=== PATIENT | female | born 1965 | race Caucasian/White ===

== ENCOUNTER 2017-05-30 10:41 | Outpatient (CLI) | payer OTHER, BC ==
[2017-05-30 10:58] LABS: BASOPHILS # (AUTO) 0.1 10^3/uL (0.0-0.1); BASOPHILS % (AUTO) 0.7 %; EOSINOPHILS # (AUTO) 0.1 10^3/uL (0.0-0.7); EOSINOPHILS % (AUTO) 0.8 %; HCT - HEMATOCRIT 40.1 % (37.0-47.0); HGB - HEMOGLOBIN 13.4 g/dL (12.0-16.0); LYMPHOCYTES # (AUTO) 2.2 10^3/uL (1.5-3.5); LYMPHOCYTES % (AUTO) 24.8 %; MEAN CORPUSCULAR HEMOGLOBIN 32.2 pg (27.0-31.0); MEAN CORPUSCULAR HGB CONC 33.5 g/dL (32.0-36.0); MEAN CORPUSCULAR VOLUME 96.2 fL (81.0-99.0); MEAN PLATELET VOLUME 10.2 fL (7.9-10.8); MONOCYTES # (AUTO) 0.7 10^3/uL (0.0-1.0); MONOCYTES % (AUTO) 7.5 %; NEUTROPHILS % (AUTO) 66.2 %; NUCLEATED RED BLOOD CELLS AUTO 0.1 /100WBC; RED BLOOD COUNT 4.17 10^6/uL (4.20-5.40); RED CELL DISTRIBUTION WIDTH 13.3 % (12.0-15.0)
[2017-05-30 11:18] LABS: ALBUMIN/GLOBULIN RATIO 1.5 (1.0-2.2); BILIRUBIN,TOTAL 0.7 mg/dL (0.2-1.0); BUN - BLOOD UREA NITROGEN 12 mg/dL (6-20); CALCIUM 9.7 mg/dL (8.5-10.3); CARBON DIOXIDE - CO2 28 mmol/L (21-32); CHLORIDE 100 mmol/L (101-111); CHOL/HDL RATIO 3.1 (<4.4); CHOLESTEROL 221 mg/dL; CREATININE 0.6 mg/dL (0.4-1.0); GFR - MDRD 106 (>89); GLUCOSE 112 mg/dL (70-100); HDL CHOLESTEROL 72 mg/dL; LDL/HDL RATIO 1.8 (<4.4); POTASSIUM 3.8 mmol/L (3.5-5.0); SODIUM 138 mmol/L (135-145); TOTAL PROTEIN 7.9 g/dL (6.7-8.2); TRIGLYCERIDES 81 mg/dL; VLDL CHOLESTEROL 16 mg/dL
[2017-05-30 11:57] LABS: THYROID STIMULATING HORMONE 22.55 uIU/mL (0.34-5.60)
== END 2017-05-30 10:42 | disposition home or self-care (01) ==
LOC: LAB 10:41
PROVIDERS: ATTEND Nurse Practitioner Family
DX: E88.81 Metabolic syndrome and other insulin resistance (principal); E03.9 Hypothyroidism, unspecified
CPT/HCPCS: 36415; 80053; 80061; 84439; 84443; 85025

== ENCOUNTER 2017-08-01 09:11 | Outpatient (CLI) | payer OTHER, BC ==
[2017-08-01 09:54] LABS: BASOPHILS % (AUTO) 0.3 %; EOSINOPHILS # (AUTO) 0.1 10^3/uL (0.0-0.7); EOSINOPHILS % (AUTO) 0.8 %; HGB - HEMOGLOBIN 13.4 g/dL (12.0-16.0); LYMPHOCYTES # (AUTO) 1.4 10^3/uL (1.5-3.5); LYMPHOCYTES % (AUTO) 15.5 %; MEAN CORPUSCULAR HEMOGLOBIN 32.7 pg (27.0-31.0); MEAN CORPUSCULAR HGB CONC 34.1 g/dL (32.0-36.0); MEAN CORPUSCULAR VOLUME 95.9 fL (81.0-99.0); MEAN PLATELET VOLUME 10.1 fL (7.9-10.8); MONOCYTES # (AUTO) 0.6 10^3/uL (0.0-1.0); MONOCYTES % (AUTO) 6.7 %; NEUTROPHILS % (AUTO) 76.7 %; PLT - PLATELET COUNT 143 10^3/uL (130-450); RED BLOOD COUNT 4.09 10^6/uL (4.20-5.40); RED CELL DISTRIBUTION WIDTH 13.1 % (12.0-15.0); WHITE BLOOD COUNT 9.1 x10^3/uL (4.8-10.8)
[2017-08-01 09:55] LABS: CHOL/HDL RATIO 2.7 (<4.4); CHOLESTEROL 199 mg/dL; HDL CHOLESTEROL 73 mg/dL; LDL CHOLESTEROL,CALCULATED 114 mg/dL; LDL/HDL RATIO 1.6 (<4.4); VLDL CHOLESTEROL 12 mg/dL
[2017-08-01 10:16] LABS: % IRON SATURATION 39 % (20-50); IRON 105 ug/dL (28-170); TOTAL IRON BINDING CAPACITY 270 ug/dL (250-450); TRANSFERRIN 193 mg/dL (192-382)
[2017-08-01 10:44] LABS: THYROID STIMULATING HORMONE 3.23 uIU/mL (0.34-5.60)
[2017-08-01 10:45] LABS: FREE T4 (FREE THYROXINE) 0.54 ng/dL (0.58-1.64)
== END 2017-08-01 09:12 | disposition home or self-care (01) ==
LOC: LAB 09:11
PROVIDERS: ATTEND Nurse Practitioner Family
DX: E78.5 Hyperlipidemia, unspecified (principal); E03.9 Hypothyroidism, unspecified; F41.8 Other specified anxiety disorders
CPT/HCPCS: 36415; 80061; 83540; 84439; 84443; 84466; 85025

== ENCOUNTER 2018-03-11 14:40 | Outpatient (CLI) | payer OTHER, BC ==
[2018-03-11 16:06] LABS: THYROID STIMULATING HORMONE 6.13 uIU/mL (0.34-5.60)
[2018-03-11 16:08] LABS: FREE T4 (FREE THYROXINE) 0.54 ng/dL (0.58-1.64)
== END 2018-03-11 14:41 | disposition home or self-care (01) ==
LOC: LAB 14:40
PROVIDERS: ATTEND Nurse Practitioner Family
DX: E03.9 Hypothyroidism, unspecified (principal)
CPT/HCPCS: 36415; 84439; 84443

== ENCOUNTER 2018-05-06 11:18 | Outpatient (CLI) | payer OTHER, BC ==
[2018-05-06 12:46] LABS: THYROID STIMULATING HORMONE < 0.08 uIU/mL (0.34-5.60)
[2018-05-06 12:50] LABS: FREE T4 (FREE THYROXINE) 1.02 ng/dL (0.58-1.64)
== END 2018-05-06 11:19 | disposition home or self-care (01) ==
LOC: LAB 11:18
PROVIDERS: ATTEND Nurse Practitioner Family
DX: E03.9 Hypothyroidism, unspecified (principal)
CPT/HCPCS: 36415; 84439; 84443

== ENCOUNTER 2019-03-23 10:29 | Outpatient (CLI) | payer BC | END 2019-03-23 10:30 | disposition home or self-care (01) | LOC: LAB 10:29 → RT 10:30 | PROVIDERS: ATTEND Registered Nurse | DX: I95.89 Other hypotension (principal) | CPT/HCPCS: 93005 ==

== ENCOUNTER 2019-03-24 09:03 | Outpatient (CLI) | payer BC ==
[2019-03-24 09:16] LABS: BASOPHILS % (AUTO) 0.5 %; EOSINOPHILS # (AUTO) 0.1 10^3/uL (0.0-0.7); EOSINOPHILS % (AUTO) 1.4 %; HGB - HEMOGLOBIN 13.9 g/dL (12.0-16.0); LYMPHOCYTES # (AUTO) 1.6 10^3/uL (1.5-3.5); LYMPHOCYTES % (AUTO) 25.4 %; MEAN CORPUSCULAR HEMOGLOBIN 32.3 pg (27.0-31.0); MEAN CORPUSCULAR HGB CONC 32.9 g/dL (32.0-36.0); MEAN CORPUSCULAR VOLUME 98.1 fL (81.0-99.0); MEAN PLATELET VOLUME 11.5 fL (7.9-10.8); MONOCYTES # (AUTO) 0.6 10^3/uL (0.0-1.0); MONOCYTES % (AUTO) 9.3 %; NEUTROPHILS # (AUTO) 3.9 10^3/uL (1.5-6.6); NEUTROPHILS % (AUTO) 63.2 %; PLT - PLATELET COUNT 157 10^3/uL (130-450); RED BLOOD COUNT 4.31 10^6/uL (4.20-5.40); RED CELL DISTRIBUTION WIDTH 13.6 % (12.0-15.0); WHITE BLOOD COUNT 6.2 x10^3/uL (4.8-10.8)
[2019-03-24 09:35] LABS: HB2 TOTAL 14.2 g/dL; HEMOGLOBIN A1C 0.5 g/dL; HEMOGLOBIN A1C % 5.4 % (4.6-6.2)
[2019-03-24 09:42] LABS: ALBUMIN 4.7 g/dL (3.2-5.5); ALBUMIN/GLOBULIN RATIO 1.5 (1.0-2.2); ALKALINE PHOSPHATASE 73 IU/L (42-121); ALT ALANINE AMINOTRANSFERASE 12 IU/L (10-60); AST ASPARTATE AMINOTRANSFERASE 16 IU/L (10-42); BILIRUBIN,TOTAL 1.1 mg/dL (0.2-1.0); BUN - BLOOD UREA NITROGEN 14 mg/dL (6-20); CALCIUM 9.7 mg/dL (8.5-10.3); CARBON DIOXIDE - CO2 29 mmol/L (21-32); CHLORIDE 102 mmol/L (101-111); CHOL/HDL RATIO 3.1 (<4.4); CHOLESTEROL 215 mg/dL; CREATININE 0.6 mg/dL (0.4-1.0); GFR - MDRD 105 (>89); GLUCOSE 98 mg/dL (70-100); HDL CHOLESTEROL 69 mg/dL; LDL CHOLESTEROL,CALCULATED 131 mg/dL; LDL/HDL RATIO 1.9 (<4.4); SODIUM 140 mmol/L (135-145); TOTAL PROTEIN 7.8 g/dL (6.7-8.2); VLDL CHOLESTEROL 15 mg/dL
== END 2019-03-24 09:04 | disposition home or self-care (01) ==
LOC: LAB 09:03
PROVIDERS: ATTEND Registered Nurse
DX: E03.9 Hypothyroidism, unspecified (principal)
CPT/HCPCS: 36415; 80053; 80061; 83036; 83721; 84443; 85025

== ENCOUNTER 2020-09-05 07:39 | Outpatient (CLI) | payer BC ==
[2020-09-05 08:10] LABS: BASOPHILS % (AUTO) 0.7 %; EOSINOPHILS # (AUTO) 0.1 10^3/uL (0.0-0.7); EOSINOPHILS % (AUTO) 1.9 %; HGB - HEMOGLOBIN 13.8 g/dL (12.0-16.0); LYMPHOCYTES # (AUTO) 1.4 10^3/uL (1.5-3.5); LYMPHOCYTES % (AUTO) 23.7 %; MEAN CORPUSCULAR HEMOGLOBIN 31.2 pg (27.0-31.0); MEAN CORPUSCULAR HGB CONC 31.8 g/dL (32.0-36.0); MEAN CORPUSCULAR VOLUME 98.2 fL (81.0-99.0); MEAN PLATELET VOLUME 11.3 fL (7.9-10.8); MONOCYTES # (AUTO) 0.6 10^3/uL (0.0-1.0); MONOCYTES % (AUTO) 9.5 %; NEUTROPHILS # (AUTO) 3.7 10^3/uL (1.5-6.6); NEUTROPHILS % (AUTO) 63.7 %; PLT - PLATELET COUNT 159 10^3/uL (130-450); RED BLOOD COUNT 4.42 10^6/uL (4.20-5.40); RED CELL DISTRIBUTION WIDTH 13.2 % (12.0-15.0); WHITE BLOOD COUNT 5.8 x10^3/uL (4.8-10.8)
[2020-09-05 08:31] LABS: ALBUMIN 4.5 g/dL (3.2-5.5); ALBUMIN/GLOBULIN RATIO 1.6 (1.0-2.2); ALKALINE PHOSPHATASE 65 IU/L (42-121); ALT ALANINE AMINOTRANSFERASE 12 IU/L (10-60); AST ASPARTATE AMINOTRANSFERASE 14 IU/L (10-42); BILIRUBIN,TOTAL 0.5 mg/dL (0.2-1.0); BUN - BLOOD UREA NITROGEN 13 mg/dL (6-20); CALCIUM 9.7 mg/dL (8.5-10.3); CARBON DIOXIDE - CO2 28 mmol/L (21-32); CHLORIDE 102 mmol/L (101-111); CHOL/HDL RATIO 3.2 (<4.4); CHOLESTEROL 218 mg/dL; CREATININE 0.7 mg/dL (0.4-1.0); GLUCOSE 84 mg/dL (70-100); HDL CHOLESTEROL 68 mg/dL; LDL CHOLESTEROL,CALCULATED 129 mg/dL; LDL/HDL RATIO 1.9 (<4.4); TOTAL PROTEIN 7.4 g/dL (6.7-8.2); VLDL CHOLESTEROL 21 mg/dL
[2020-09-05 09:10] LABS: FREE T4 (FREE THYROXINE) 1.07 ng/dL (0.58-1.64)
== END 2020-09-05 07:40 | disposition home or self-care (01) ==
LOC: LAB 07:39
PROVIDERS: ATTEND Registered Nurse
DX: I95.89 Other hypotension (principal); R40.0 Somnolence; F41.9 Anxiety disorder, unspecified; F32.9 Major depressive disorder, single episode, unspecified; E78.5 Hyperlipidemia, unspecified
CPT/HCPCS: 36415; 80053; 80061; 83721; 84439; 84443; 85025

== ENCOUNTER 2021-04-19 08:00 | Outpatient (CLI) | payer BC | END 2021-04-19 23:59 | disposition home or self-care (01) | LOC: LAB.N 08:00 | PROVIDERS: ATTEND Family Medicine | DX: R31.9 Hematuria, unspecified (principal) | CPT/HCPCS: 87086; 87181 ==

== ENCOUNTER 2021-05-29 14:39 | Outpatient (CLI) | payer BC ==
[2021-05-29 15:30] VITALS: BP 114/69
--- NOTE | 2021-05-29 15:30 | SLEEP CARE CONSULTATION ---
Information from patient questionnaire entered by Giuseppe Riojas MA. I have reviewed and concur with the information entered by Giuseppe Riojas MA. This document represents the service I personally performed and the decisions made by , Alma Burger ARNP. History of Present Illness Service Date and Time: 05/29/2021 1439 Reason for Visit: New patient Chief Complaint: reports: Unrefreshed sleep, Snoring, Excessive daytime sleepiness, Fatigue Date of Onset: forever Usual bedtime: 800 pm Time it takes to fall asleep: 10 minutes Snores at night: Yes Observed to quit breathing while asleep: No Sleeps alone due to snoring: No Number of times waking at night: 1 Reasons for waking at night: reports: Snoring, Bathroom Toss, Turn, or Twitch while sleeping: No Recalls having dreams: Yes Usually gets out of bed at: 0500 0600 Feels refreshed in the morning: No Morning headache: No Sleepy or fatigued during the day: Yes Ever fallen asleep while driving: No Takes day naps: Yes (daily for 20-60 minutes) Dreams during day naps: No Prior sleep studies: No Additional HPI information: I had the pleasure of seeing SLIM WELSH today regarding the possibility of her having a sleep disorder. Her current complaints are excessive daytime sleepiness, fatigue, snoring and unrefreshed sleep. Her has told her she will snore and then gets quiet and he thinks she stops breathing. She has woke herself up snoring. Her mother had sleep apnea and did use a PAP device. She does not wake up feeling rested and gets sleepy during the day. She will take a nap for 20-60 minutes daily. - Parasomnia Symptoms Ever been unable to move upon waking from sleep: No Walks in sleep: No Talks in sleep: Yes (can carry on a conversation ) Ever acted out dreams in sleep: No Ever felt weak in the knees when startled or emotional: No Bothered by creepy, crawly, restless sensations in legs: No Problems with memory or concentration: Yes (some days) Subjective Initial [place] Sleepiness Scale score: 10 (2020) Past Medical History Past Medical History: reports: Depression, Attention deficit (not diagnosed, thinks she has this) Social History The patient's occupation is a [employer]. Patient is and lives in [place]. Have you smoked in the past 12 months: Yes Cigarettes per day (20/pack): 10 Alcohol use: No Caffeine use: Yes Caffeine amount and frequency: 4 cups x daily Family History Family history of sleep disordered breathing: Yes Family Hx Sleep Apnea: Mother: Snoring, Sleep apnea - Treated Allergies and Home Medications Drug allergies reviewed: Yes (Codiene, itching) Home medication list reviewed: Yes Allergy and home medication list: [place] Thyroid med for sleep, not sure of name Citalopram Review of Systems Gastrointestinal: denies: heartburn Neurological: denies: headaches Psychiatric: reports: depression Ear/Nose/Throat: reports: wisdom teeth removed (has two only). denies: tonsillectomy Endocrine: reports: thyroid disease Immunologic: denies: allergies to food or environment Physical Exam Vital signs obtained and entered by: Beulah CHENGMA Blood Pressure: 114/69 (left ) Cuff size: wrist Heart Rate: 68 O2 Saturation: 96 (with masks) Height: 5 ft 7 in Weight: 174 lb (with boots) Body Mass Index: 27.2 BMI Classification: Overweight Neck circumference: 13 (inches) Mouth and throat: narrow oropharynx Soft palate: long Hard palate: normal Uvula: normal Uvula visualization: 50% Mallampati Class II Tongue: normal in size Tonsils: small Neck: normal w/o lymphadenopathy or thyromegaly Heart: regular rate and rhythm Lungs: clear bilaterally Impression and Plan 1. Suspected Obstructive Sleep Apnea-Hypopnea Syndrome, as suggested by a history of loud and irregular snoring, observed cessation of breath while asleep, unrefreshed sleep, cognitive impairment, and excessive daytime sleepiness. Narrow oropharynx and obesity are common predisposing factors for obstructive sleep apnea-hypopnea syndrome. I recommend proceeding to polysomnography to confirm the diagnosis and to assess severity. If the patient has significant sleep disordered breathing, a manual CPAP titration study will also be performed to find the optimal treatment pressure. I informed the patient of what the sleep studies involve and after some discussion, obtained agreement to proceed. The pathophysiology of obstructive sleep apnea-hypopnea syndrome was discussed with the patient and health risks of cardiovascular and cerebrovascular disease if not treated. AAS brochure for obstructive sleep apnea-hypopnea syndrome given and reviewed. Risks of drowsy driving discussed in detail and patient advised to avoid long distance driving and to machine tack puller at the first sign of drowsiness. Patient agreed to plan. * Schedule polysomnography +- manual CPAP titration study and return in 1-2 weeks after the study to discuss result and initiate therapy. * Avoid long distance driving or driving when feeling sleepy. * Avoid alcohol, sedative and muscle relaxant around bedtime. * Attempt to lose weight. * Review instructions provided by trained office staff on how to prepare for the sleep study. * Return for follow-up after sleep study completed. Counseling Topics: Weight loss health impact Time Spent with Patient (minutes): 30
== END 2021-05-29 14:40 | disposition home or self-care (01) ==
LOC: SC 14:39
PROVIDERS: ATTEND Nurse Practitioner Family
DX: G47.10 Hypersomnia, unspecified (principal); R41.89 Other symptoms and signs involving cognitive functions and awareness; G47.8 Other sleep disorders; R06.81 Apnea, not elsewhere classified; R06.83 Snoring
CPT/HCPCS: 99203; 99212

== ENCOUNTER 2021-07-06 09:57 | Outpatient (CLI) | payer BC | END 2021-07-06 09:58 | disposition home or self-care (01) | LOC: SC 09:57 | PROVIDERS: ATTEND Nurse Practitioner Family | DX: G47.33 Obstructive sleep apnea (adult) (pediatric) (principal); R09.02 Hypoxemia | CPT/HCPCS: 95806 ==

== ENCOUNTER 2021-07-09 21:04 | Emergency (ER) | payer BC ==
--- NOTE | 2021-07-09 22:11 | ED Physician Documentation ---
PD HPI BACK PAIN - Stated complaint Stated Complaint: BACK PX - Chief complaint Chief Complaint: Trauma Ch/Bk - Additional information Additional information: Patient is a 56-year-old female presenting with back and left-sided hip pain. Endorses for longstanding history of chronic back pain worse x1 week. States known history of spinal stenosis. Denies any trauma to the back. Denies any fever, chills, saddle paresthesias, changes bowel bladder habit, weakness in the lower extremities. 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 - Present Medications Home Medications: Ambulatory Orders Medication Instructions Recorded Confirmed Hormone Replacement 0 mg DAILY 12/01/13 07/09/21 Thyroid [[place] Thyroid] 120 mg PO DAILY 12/01/13 07/09/21 Acetaminophen [Tylenol] 650 mg PO Q6H PRN #30 tab 07/09/21 Citalopram Hydrobromide 40 mg PO DAILY 07/09/21 07/09/21 [Citalopram HBr] Diazepam [Valium] 2 mg PO Q6HR 4 Days #12 tablet 07/09/21 Ibuprofen [Motrin] 800 mg PO Q8H PRN #30 tablet 07/09/21 - Allergies Allergies/Adverse Reactions: Allergies Allergy/AdvReac Type Severity Reaction Status Date / Time codeine Allergy Itching Verified 07/09/21 21:14 - Social History Does the pt smoke?: Yes Smoking Status: Current every day smoker Does the pt drink ETOH?: Yes Does the pt have substance abuse?: No - Immunizations Immunizations are current?: Yes - POLST Patient has POLST: No PD ED PE NORMAL - Vitals Vital signs reviewed: Yes - General General: Alert and oriented X 3 - HEENT HEENT: Atraumatic - Neck Neck: Supple, no meningeal sign - Respiratory Respiratory: No respiratory distress PD ED PE EXPANDED - Back Back: Soft tissue tenderness (Left paralumbar soft tissue tenderness to palpation). No: Vertebral tenderness, CVA TTP left Results - Vitals Vitals: Vital Signs - 24 hr 07/09/21 07/09/21 21:11 23:16 Temperature 36.3 C L 36.4 C L Heart Rate 92 85 Respiratory 18 18 Rate Blood Pressure 108/66 110/67 O2 Saturation 95 96 Oxygen O2 Source Room air PD MEDICAL DECISION MAKING - ED course ED course: Patient is 56-year-old female presenting to the emergency department with acute on chronic back pain. Afebrile, hemodynamically stable on arrival to the emergency department. No red flags for spinal cord compression noted in patient's history. She was given medications for symptomatic management and discharged on a brief course of a muscle relaxer. Encouraged careful follow-up with primary care or return to the emergency department for new or worsening symptoms. Departure - Departure Disposition: 01 Home, Self Care Clinical Impression: Back pain Condition: Fair Instructions: IBUPROFEN (Adult), ED Neck Back Pain General Prescriptions: Diazepam [Valium] 2 mg PO Q6HR 4 Days #12 tablet Ibuprofen [Motrin] 800 mg PO Q8H PRN #30 tablet PRN Reason: PAIN &/OR FEVER Acetaminophen [Tylenol] 650 mg PO Q6H PRN #30 tab PRN Reason: Pain Comments: Thank You for allowing us to care for you today at [facility]. I will be sending some prescriptions to [facility] in [place]. 1 of these, Valium, is a strong muscle relaxer and can cause sedation. Please take this medication sparingly and only as needed. Please do not use this medication if you are operating a motor vehicle, using heavy machinery or you are the sole senior bi architect of young children. Please do follow-up with your primary care doctor in order to make an appointment for medical recheck as soon as possible. If it anytime you have any new or worsening symptoms please not hesitate to return to the emergency department. Discharge Date/Time: 07/09/21 23:16
[2021-07-09] MEDS ORDERED: KETOROLAC 60 MG/2 ML VIAL IM STA (22:42)
[2021-07-09] MEDS ORDERED: DEXAMETHASONE 10 MG/ML VIAL PO STA (22:42)
[2021-07-09] MEDS ORDERED: CHERRY SYRUP 10 ML UDC PO ONE (22:42)
[2021-07-09] MEDS ORDERED: diazePAM 5 MG TABLET PO STA (22:46)
[2021-07-09 23:17] VITALS: BP 110/67
== END 2021-07-09 23:16 | disposition home or self-care (01) ==
LOC: ED 21:04
DX: M54.2 Cervicalgia (principal); G89.29 Other chronic pain; F17.200 Nicotine dependence, unspecified, uncomplicated
CPT/HCPCS: 96372; 99283; A9270

== ENCOUNTER 2021-07-24 13:37 | Outpatient (CLI) | payer BC ==
[2021-07-24 14:23] VITALS: BP 113/70
--- NOTE | 2021-07-24 14:23 | SLEEP CARE CONSULTATION ---
Information from patient questionnaire entered by Giuseppe Riojas MA. I have reviewed and concur with the information entered by Giuseppe Riojas MA. This document represents the service I personally performed and the decisions made by , Alma Burger ARNP. History of Present Illness Service Date and Time: 07/24/2021 1337 Initial [place] Sleepiness Scale score: 10 (2020) Current [place] Sleepiness Scale score: 10 (2021) Additional HPI information: SLIM WELSH returns for follow up and results of the recently performed home sleep study. I explained the pathophysiology behind obstructive sleep apnea. We then spent quite a bit of time discussing different treatment options. For mild obstructive sleep apnea, surgery and oral appliance are alternatives to nasal CPAP therapy but in moderate or severe cases, nasal CPAP is the most effective and reliable treatment. Because apnea is primarily in supine position, then positional management therapy could be effective. Methods discussed such as positioning with pillows, using a T-shirt with tennis balls in the back, and shown commercial products that have a pillow format on back to prevent supine sleep. I reviewed the impact of weight changes on sleep apnea and strongly recommended losing weight. After some discussion, the patient opted to go with the nasal CPAP therapy. Nasal autoCPAP set at 4-15 cmH20 will be ordered with rationale explained. A manual titration study will be ordered if unable to find optimal pressure with office adjustments. I explained how CPAP machine works and what to expect when using the machine. Using CPAP every night in order to get used to it was emphasized. Patient advised to put CPAP mask on before getting into bed so as not to fall asleep without CPAP. To assist acclimation to CPAP use, it could also be used for a short time during day while reading or watching TV. The patient was instructed to call the CPAP supplier to discuss any mechanical problem that may occur. If the mask given is uncomfortable or is difficult to keep on through the night even with adjustment, contact the CPAP supplier as many will replace with another mask style if notified before 30 days. If snoring or perceives is not getting enough air or too much air from the machine, notify this office. AAS patient education PAP tips reviewed and given to patient. Patient does not drink alcohol. Patient was cautioned about risks of drowsy driving until sleepiness symptoms resolve. Sleep Study - Results Prior sleep studies: No Polysomnography/Home Sleep Study results: Physician Impression: The quality of the study is fair due to partial loss of pulse oximetry signal. The length of the study is adequate (> 240 minutes). Please also see the tabulated and graphic data. 1. Obstructive Sleep Apnea-Hypopnea (ICD-10 G47.33), moderate, with an AHI of 20.3/hr and francisco j SaO2 of 57%. During the study, the patient had 70 apneas (69 obstructive, 0 central, 1 mixed) and 7 hypopneas. The longest episode lasted 127.0 seconds. The respiratory events occurred more frequently during supine sleep (supine AHI was 35.5 and non-supine, 10.43). 2. Hypoxemia (ICD-10 R09.02), severe, with the lowest oxygen saturation of 57 % and 24.2 minutes with SaO2 under 90%. Baseline oxygen saturation was normal (Average oxygen saturation was 91%). However, the pulse oximetry data is not reliable. Allergies and Home Medications Home medication list reviewed: Yes (no changes) Review of Systems Review of systems same as previous: Yes (no changes) Physical Exam Vital signs obtained and entered by: FILIPE RAMIREZ Blood Pressure: 113/70 (LEFT) Cuff size: wrist Heart Rate: 62 O2 Saturation: 97 (WITH PAPER MASK) Height: 5 ft 8.5 in Weight: 175 lb Body Mass Index: 26.2 BMI Classification: Overweight Impression and Plan 1. Obstructive Sleep Apnea-Hypopnea Syndrome, moderate, with lowest oxygen saturation of 57% (loss of pulse oximetry signal during study). Obviously this is the cause of the patients symptoms of unrefreshed sleep, and excessive daytime sleepiness. Positive pressure therapy could benefit depression and attention deficit. As mentioned above, the patient will be started on nasal autoCPAP therapy with pressure set at 4-15 cmH2O. A manual titration study will be completed if unable to find optimal treatment pressure with office adjustmen ts. Compliance guidelines also reviewed. A copy of compliance guidelines will be given for reference at check out. Because the apnea is more severe supine, I instructed to avoid sleeping supine using pillow positioning until able to start CPAP use. * Nasal auto CPAP therapy, pressure at 4-15 cm H2O. * Attempt to lose weight. * Avoid alcohol consumption near bedtime. * Avoid supine sleep until using CPAP. * The patient is again cautioned about driving until sleepiness completely resolves. * Return one month after CPAP obtained. I will assess response to therapy and compliance at that time. Counseling Topics: Sleeping position, Weight loss health impact Visit Type: In Office Time Spent with Patient (minutes): 22 Provider Statement: I spent 100% of the Face to Face Visit with the patient with greater than 50% spent counseling the patient and coordination of care.
== END 2021-07-24 13:38 | disposition home or self-care (01) ==
LOC: SC 13:37
PROVIDERS: ATTEND Nurse Practitioner Family
DX: G47.33 Obstructive sleep apnea (adult) (pediatric) (principal)
CPT/HCPCS: 99212; 99213

== ENCOUNTER 2021-11-27 13:10 | Outpatient (CLI) | payer BC ==
[2021-11-27 14:03] VITALS: BP 126/71
--- NOTE | 2021-11-27 14:03 | SLEEP CARE CONSULTATION ---
Information from patient questionnaire entered by Giuseppe Riojas MA. I have reviewed and concur with the information entered by Giuseppe Riojas MA. This document represents the service I personally performed and the decisions made by , Alma Burger ARNP. History of Present Illness Service Date and Time: 11/27/2021 1310 Previous diagnosis: Mild, Obstructive Sleep Apnea-Hypopnea Syndrome AHI: 20.3 (in 2020) Reason for follow up: first compliance (set up 08/30/2021, resmed, ) Equipment type: CPAP Equipment obtained from: Other ([facility]; got inital supplies) Mask style: Nasal Backup mask available: Yes (old mask) Last cushion change: 3 weeks Prior sleep studies: No HPI additional information: SLIM WELSH was diagnosed to have mild, AHI 20.3, obstructive sleep apnea-hypopnea syndrome and returned today for CPAP therapy first compliance (with [facility]) follow-up. Sleep Study - Results Prior sleep studies: No CPAP Compliance Data - Data Reviewed with Patient Average duration of nightly device use: 5 hours 54 minutes Compliance rate %: 40 (30 days; 15/30 days used) Current pressure setting (cmH2O): 4-15 (median 8.7, avg 12.6, max 14.0) Average residual AHI: 9.7 Central apnea: 2.7 Obstructive apnea: 5.5 Average large leak: 25.2 Subjective Missed days of use due to: reports: illness (covid), travel (to [place] for week to 10 days) Patient concerns: reports: dry mouth, nose, throat (occasional dry mouth), other (snores still; mask falls off or removes while sleeping). denies: aerophagia, mask discomfort, air blowing in eyes, mask leak noise, condensation in mask/hose, nasal congestion, epistaxis Observed to snore while using device: No Current pressure setting perceived as: too low On therapy, patient: reports: other (waking). denies: drowsiness while driving Initial [place] Sleepiness Scale score: 10 (2020) Current [place] Sleepiness Scale score: 15 (11/2021) Allergies and Home Medications Known drug allergies: No Drug allergies reviewed: Yes Home medication list reviewed: Yes Allergy and home medication list: Allergies codeine Allergy (Verified 07/09/21 21:14) Itching Physical Exam Vital signs obtained and entered by: Sampson RIOJAS CMA AAYU Blood Pressure: 126/71 Heart Rate: 67 O2 Saturation: 97 (paper mask) Height: 5 ft 8.5 in Weight: 0 oz (pt refused) Body Mass Index: 0.0 BMI Classification: Underweight Impression and Plan 1. Obstructive Sleep Apnea-Hypopnea Syndrome, moderate, with poor treatment compliance and fair apnea control with mild elevation of residual AHI. Patient has not felt a lot of difference in her symptoms but she has not been getting compliant time on her device. She was sick with Covid for 2 weeks and did not use her CPAP. She has been trying to use the CPAP and has felt like the beginning pressure is too low. She continually has to move the cushion away from her nose to see if the pressure is on. She states she will wake up and find the mask on her bed, on her forehead or on the floor without any recollection of t aking it off. Her pressure setting is slightly ineffective with an elevated residual AHI. The patients pressure will be changed to autoCPAP 13-18 cmH20 for elevation of residual AHI. Patient advised to contact me if pressure change is uncomfortable so that it can be adjusted. Goals for apnea control discussed. She voiced understanding. She tells me that her DME is trying to get her to return her machine due to poor compliance. I will have her concentrate on getting her compliance up and follow up in a month to recheck this. She also been oral venting and I advised she try a chin strap. Patient's apnea severity and rationale for treatment to reduce apnea, improve sleep quality and reduce cardiovascular and cerebrovascular events was reviewed. I also reviewed the benefit of consistent device use of CPAP for depression and attention deficit. * Increase ramp starting pressure to 6 cmH2O for air hunger at beginning of night * Change auto CPAP pressure to 13-18 cmH2O * Chin strap * get enough supplies to continue using CPAP * Notify me if snoring with mask or feeling that the pressure is too much or too little * Attempt to lose weight * Call this office if any problems using CPAP * Return for follow up in 1-2 months, or sooner if concerns arise Counseling Topics: Spare mask, Weight loss health impact Visit Type: In Office Time Spent with Patient (minutes): 29 Provider Statement: I spent 100% of the Face to Face Visit with the patient with greater than 50% spent counseling the patient and coordination of care.
== END 2021-11-27 13:11 | disposition home or self-care (01) ==
LOC: SC 13:10
PROVIDERS: ATTEND Nurse Practitioner Family
DX: G47.33 Obstructive sleep apnea (adult) (pediatric) (principal)
CPT/HCPCS: 99212; 99213

== ENCOUNTER 2021-12-01 08:00 | Outpatient (CLI) | payer BC | END 2021-12-01 23:59 | disposition home or self-care (01) | LOC: LAB.S 08:00 | PROVIDERS: ATTEND Physician Assistant | DX: N39.0 Urinary tract infection, site not specified (principal) | CPT/HCPCS: 87086 ==

== ENCOUNTER 2022-05-07 16:29 | Outpatient (CLI) | payer BC ==
--- NOTE | 2022-05-07 15:58 | SLEEP CARE CONSULTATION ---
Information from patient questionnaire entered by Sindhu Lawrence. I have reviewed and concur with the information entered by Sindhu Lawrence. This document represents the service I personally performed and the decisions made by me, Alma Burger ARNP. History of Present Illness Service Date and Time: 05/07/2022 1629 Previous diagnosis: Mild, Obstructive Sleep Apnea-Hypopnea Syndrome AHI: 20.3 (in 2020) Reason for follow up: other (5 MONTH F/U RESMED MASK ISSUES) Equipment type: CPAP Equipment obtained from: Other ([facility]) Mask style: Nasal Backup mask available: No Prior sleep studies: No HPI additional information: SLIM WELSH was diagnosed to have moderate, AHI 20.3, obstructive sleep apnea-hypopnea syndrome and returns via video telehealth video today for CPAP therapy 5 month follow-up. Sleep Study - Results Prior sleep studies: No CPAP Compliance Data - Data Reviewed with Patient Average duration of nightly device use: 5 hours 57 minutes Compliance rate %: 53 (/30 days used; 04/07/2022-05/06/2022) Current pressure setting (cmH2O): 13-18 Average residual AHI: 4.6 Central apnea: 2.2 Obstructive apnea: 1.9 Average large leak: 1.4 L/min Compliance data discussion: Patient was very concerned when her DME asked her to return her CPAP due to her non-compliance. She thought she was being compliant. She was wearing her mask at least 6 hours or more at night. She discovered about month or so ago that the machine is set to turn off if you take the mask off. She would wake up to use the restroom and take the mask off and then return and put the mask on without noticing that the machine was not on. She has her machine set for Smartstop which will turn the pressure off if it does not detect someone in the mask. Subjective Missed days of use due to: reports: mask issues Patient concerns: reports: mask discomfort. denies: aerophagia, air blowing in eyes, mask leak noise, condensation in mask/hose, nasal congestion, dry mouth, nose, throat, epistaxis Observed to snore while using device: No Current pressure setting perceived as: too low On therapy, patient: reports: other (She is not feeling a difference in restfulness or sleeping better so far). denies: drowsiness while driving Initial [place] Sleepiness Scale score: 10 (2020) Current [place] Sleepiness Scale score: 7 (05/07\2020) Allergies and Home Medications Drug allergies reviewed: Yes (codeine) Home medication list reviewed: Yes (Adderral 30 mg 0530; 10 mg 0730) Review of Systems Review of systems same as previous: Yes (ADHD) Physical Exam Vital signs obtained and entered by: VIA PHONE Height: 5 ft 8.5 in Weight: 170 lb (pt verified ) Body Mass Index: 25.4 BMI Classification: Overweight Impression and Plan 1. Obstructive Sleep Apnea-Hypopnea Syndrome, moderate, with poor treatment compliance and good apnea control. Patient is trying to wear her mask and be compliant. She did not know it had an automatic cough if she took the mask off at night and has been wearing the mask without the pressure going. This also shows her to be poorly compliant because the machine is not recording her wearing the mask. Patient also notes that in February 2021 her son and she has been dealing with those emotions over the last year when she started using the CPAP. She knows this probably affected her ability to focus and noticed slight changes with her CPAP. I will have the patient bring in her CPAP and we can adjust that Smart stop for her. I also will have her follow-up to recheck her compliance in about a month. We will let her [employer] company know about these difficulties. They have been trying to get her to return her machine due to noncompliance and have charged her for supplies. She returned the supplies and is okay with supplies right now. I will have my office staff please call to try and work out some details so that she can continue to use her machine and show compliance now that we know what the problem has been. We will then follow-up with her again for her compliance. Patient's apnea severity and rationale for treatment to reduce apnea, improve sleep quality and reduce cardiovascular and cerebrovascular events was reviewed. I also reviewed the benefit of consistent device use of CPAP for depression and attention deficit. * Continue auto CPAP pressure at 13-18 cmH2O * Notify me if snoring with mask or feeling that the pressure is too much or too little * Call this office if any problems using CPAP * Return for follow up in 1-2 months, or sooner if concerns arise Counseling Topics: Spare mask, Weight loss health impact Visit Type: Telehealth Video [facility] Patient Location: sister's Location of Provider: Office Patient agrees and consents to this telehealth visit type: Yes Patient agrees to have their insurance billed: Yes Time Spent with Patient (minutes): 24 Provider Statement: I spent 100% of the Telehealth Video Call with the patient with greater than 50% spent counseling the patient and coordination of care.
== END 2022-05-07 16:30 | disposition home or self-care (01) ==
LOC: SC 16:29
PROVIDERS: ATTEND Nurse Practitioner Family
DX: G47.33 Obstructive sleep apnea (adult) (pediatric) (principal); E66.3 Overweight; Z68.25 Body mass index [BMI] 25.0-25.9, adult

== ENCOUNTER 2022-07-26 07:53 | Outpatient (CLI) | payer BC ==
[2022-07-26 08:10] LABS: BASOPHILS % (AUTO) 0.6 %; EOSINOPHILS # (AUTO) 0.1 10^3/uL (0.0-0.7); EOSINOPHILS % (AUTO) 1.4 %; HCT - HEMATOCRIT 42.8 % (37.0-47.0); LYMPHOCYTES # (AUTO) 1.7 10^3/uL (1.5-3.5); LYMPHOCYTES % (AUTO) 22.7 %; MEAN CORPUSCULAR HEMOGLOBIN 31.7 pg (27.0-31.0); MEAN CORPUSCULAR HGB CONC 32.7 g/dL (32.0-36.0); MEAN CORPUSCULAR VOLUME 97.1 fL (81.0-99.0); MEAN PLATELET VOLUME 11.2 fL (7.9-10.8); MONOCYTES # (AUTO) 0.7 10^3/uL (0.0-1.0); MONOCYTES % (AUTO) 9.2 %; NEUTROPHILS # (AUTO) 4.8 10^3/uL (1.5-6.6); NEUTROPHILS % (AUTO) 65.8 %; PLT - PLATELET COUNT 196 10^3/uL (130-450); RED BLOOD COUNT 4.41 10^6/uL (4.20-5.40); RED CELL DISTRIBUTION WIDTH 13.5 % (12.0-15.0); WHITE BLOOD COUNT 7.3 x10^3/uL (4.8-10.8)
[2022-07-26 08:27] LABS: ALBUMIN 4.4 g/dL (3.2-5.5); ALBUMIN/GLOBULIN RATIO 1.4 (1.0-2.2); ALKALINE PHOSPHATASE 60 IU/L (42-121); ALT ALANINE AMINOTRANSFERASE 13 IU/L (10-60); AST ASPARTATE AMINOTRANSFERASE 20 IU/L (10-42); BILIRUBIN,TOTAL 0.8 mg/dL (0.2-1.0); BUN - BLOOD UREA NITROGEN 13 mg/dL (6-20); CALCIUM 9.5 mg/dL (8.5-10.3); CARBON DIOXIDE - CO2 29 mmol/L (21-32); CHLORIDE 101 mmol/L (101-111); CHOLESTEROL 239 mg/dL; CREATININE 0.7 mg/dL (0.4-1.0); GFR - MDRD 87 (>89); GLUCOSE 100 mg/dL (70-100); HDL CHOLESTEROL 80 mg/dL; LDL CHOLESTEROL,CALCULATED 139 mg/dL; LDL/HDL RATIO 1.7 (<4.4); POTASSIUM 3.7 mmol/L (3.5-5.0); SODIUM 136 mmol/L (135-145); TOTAL PROTEIN 7.6 g/dL (6.7-8.2); TRIGLYCERIDES 100 mg/dL; VLDL CHOLESTEROL 20 mg/dL
[2022-07-26 08:35] LABS: THYROID STIMULATING HORMONE 1.29 uIU/mL (0.34-5.60)
[2022-07-26 08:41] LABS: FERRITIN 25.8 ng/mL (11.0-306.8)
== END 2022-07-26 07:54 | disposition home or self-care (01) ==
LOC: LAB 07:53
PROVIDERS: ATTEND Registered Nurse
DX: E78.5 Hyperlipidemia, unspecified (principal); E03.9 Hypothyroidism, unspecified; Z79.899 Other long term (current) drug therapy
CPT/HCPCS: 36415; 80053; 80061; 82728; 83721; 84443; 85025

== ENCOUNTER 2023-01-11 18:24 | Emergency (ER) | payer BC ==
[2023-01-11 18:44] LABS: BASOPHILS # (AUTO) 0.1 10^3/uL (0.0-0.1); BASOPHILS % (AUTO) 0.4 %; EOSINOPHILS % (AUTO) 0.2 %; HCT - HEMATOCRIT 39.7 % (37.0-47.0); HGB - HEMOGLOBIN 13.1 g/dL (12.0-16.0); LYMPHOCYTES # (AUTO) 1.3 10^3/uL (1.5-3.5); LYMPHOCYTES % (AUTO) 9.9 %; MEAN CORPUSCULAR HEMOGLOBIN 31.2 pg (27.0-31.0); MEAN CORPUSCULAR VOLUME 94.5 fL (81.0-99.0); MEAN PLATELET VOLUME 11.3 fL (7.9-10.8); MONOCYTES # (AUTO) 1.4 10^3/uL (0.0-1.0); MONOCYTES % (AUTO) 10.4 %; NEUTROPHILS # (AUTO) 10.7 10^3/uL (1.5-6.6); NEUTROPHILS % (AUTO) 78.7 %; PLT - PLATELET COUNT 157 10^3/uL (130-450); RED CELL DISTRIBUTION WIDTH 13.8 % (12.0-15.0); WHITE BLOOD COUNT 13.6 x10^3/uL (4.8-10.8)
--- NOTE | 2023-01-11 18:48 | ED Physician Documentation ---
PD HPI ABD PAIN - Stated complaint Stated Complaint: FEVER - Chief complaint Chief Complaint: Abd Pain - History obtained from History obtained from: Patient - Additional information Additional information: 57-year-old woman with a single episode of diverticulitis in the past. Has had total hysterectomy and gastric sleeve as well. Has had a little under week of worsening left lower quadrant pain with fevers up to 103 at home over the last day and difficulty with bowel movements. PD PAST MEDICAL HISTORY - Past Medical History Endocrine/Autoimmune: HyPOthyroidism Musculoskeletal: Chronic back pain - Past Surgical History Past Surgical History: Yes General: Gastric surgery Ortho: Carpal Tunnel surgery /[employer]: Hysterectomy - Present Medications Home Medications: Ambulatory Orders Medication Instructions Recorded Confirmed Citalopram Hydrobromide 40 mg PO DAILY 07/09/21 01/11/23 [Citalopram HBr] Atomoxetine HCl [Strattera] 40 mg PO DAILY 01/11/23 01/11/23 Ciprofloxacin HCl [Cipro] 500 mg PO BID #20 tablet 01/11/23 Levothyroxine [Synthroid] 100 mcg PO QDAC 01/11/23 01/11/23 cloNIDine [Catapres] 0.1 mg PO HS 01/11/23 01/11/23 - Allergies Allergies/Adverse Reactions: Allergies Allergy/AdvReac Type Severity Reaction Status Date / Time codeine Allergy Itching Verified 01/11/23 18:30 - Social History Does the pt smoke?: Yes Smoking Status: Current every day smoker Does the pt drink ETOH?: Yes Does the pt have substance abuse?: No - Immunizations Immunizations are current?: Yes - POLST Patient has POLST: No PD ED PE NORMAL - Vitals Vital signs reviewed: Yes - General General: Alert and oriented X 3, No acute distress - Cardiac Cardiac: No murmur - Respiratory Respiratory: No respiratory distress, Clear bilaterally - Abdomen Abdomen: Normal bowel sounds, Other (Tender in the left lower quadrant without surgical signs) - Neuro Neuro: Alert and oriented X 3, Normal speech Results - Vitals Vitals: Vital Signs - 24 hr 01/11/23 18:27 Temperature 37.9 C Heart Rate 94 Respiratory 18 Rate Blood Pressure 115/68 O2 Saturation 96 Oxygen O2 Source Room air - Labs Labs: Laboratory Tests 01/11/23 01/11/23 01/11/23 18:40 18:40 19:57 WBC 13.6 H RBC 4.20 Hgb 13.1 Hct 39.7 MCV 94.5 MCH 31.2 H MCHC 33.0 RDW 13.8 Plt Count 157 MPV 11.3 H Neut # (Auto) 10.7 H Lymph # (Auto) 1.3 L Bacon # (Auto) 1.4 H Eos # (Auto) 0.0 Baso # (Auto) 0.1 Absolute Nucleated RBC 0.00 Nucleated RBC % 0.0 Sodium 137 Potassium 4.0 Chloride 102 Carbon Dioxide 27 Anion Gap 8.0 BUN 11 Creatinine 0.7 Estimated GFR (MDRD) 87 L Glucose 114 H Calcium 8.8 Total Bilirubin 0.8 AST 15 ALT 12 Alkaline Phosphatase 64 Total Protein 7.4 Albumin 3.9 Globulin 3.5 Albumin/Globulin Ratio 1.1 Lipase 22 Urine Color YELLOW Urine Clarity CLEAR Urine pH 7.0 Ur Specific P[place] <=1.005 Urine Protein NEGATIVE Urine Glucose (UA) NEGATIVE Urine Ketones 15 H Urine Occult Blood SMALL H Urine Nitrite NEGATIVE Urine Bilirubin NEGATIVE Urine Urobilinogen 0.2 (NORMAL) Ur Leukocyte Esterase NEGATIVE Urine RBC 0-5 Urine WBC 0-3 Ur Squamous Epith Cells FEW Squamous Urine Bacteria Rare Ur Microscopic Review INDICATED Urine Culture Comments NOT INDICATED - Rads (name of study) CT abdomen pelvis showing likely left pyelonephritis with diverticulosis without diverticulitis Relevant Findings:: Final report received, EMP independent interpretation of test PD Medical Decision Making - ED course ED course: 57-year-old woman presents with left-sided abdominal pain and fever. No urinary complaints. White count is 13. CBC is unremarkable otherwise. CMP normal. Urine without signs of infection. CT showing pyelonephritis, will treat for same and cultured the urine. Departure - Departure Disposition: 01 Home, Self Care Clinical Impression: Pyelonephritis Condition: Stable Instructions: Pyelonephritis Dc, ED Kidney Infec Female Prescriptions: Ciprofloxacin HCl [Cipro] 500 mg PO BID #20 tablet Comments: We will culture your urine, the results should be done in 48-72 hours. If an antibiotic change is necessary we will call you. Return if worse in the meantime, especially if you develop increasing pain, or cannot keep down the medication.
[2023-01-11] MEDS ORDERED: iohexoL-300 100 ML VIAL ONE (18:56)
[2023-01-11 18:58] LABS: ALBUMIN 3.9 g/dL (3.2-5.5); ALBUMIN/GLOBULIN RATIO 1.1 (1.0-2.2); BILIRUBIN,TOTAL 0.8 mg/dL (0.2-1.0); CALCIUM 8.8 mg/dL (8.5-10.3); CREATININE 0.7 mg/dL (0.4-1.0); TOTAL PROTEIN 7.4 g/dL (6.7-8.2)
[2023-01-11] MEDS ORDERED: iohexoL-300 100 ML VIAL IVP ONE (19:31)
[2023-01-11 20:06] LABS: BILIRUBIN,URINE NEGATIVE (NEGATIVE); GLUCOSE, URINE (UA) NEGATIVE (NEGATIVE); KETONES,URINE (UA) 15 mg/dL (NEGATIVE); LEUKOCYTE ESTERASE, URINE NEGATIVE (NEGATIVE); NITRITE,URINE NEGATIVE (NEGATIVE); OCCULT BLOOD,URINE SMALL (NEGATIVE); PROTEIN,URINE NEGATIVE (NEGATIVE); UROBILINOGEN,URINE 0.2 (NORMAL) E.U./dL (NORMAL)
[2023-01-11 20:16] LABS: BACTERIA,URINE Rare /HPF (None Seen); CLARITY,URINE CLEAR (CLEAR); RBC,URINE 0-5 /HPF (0-5); SQUAMOUS EPITHELIAL CELL,UR FEW Squamous (<= Few); WBC,URINE 0-3 /HPF (0-5)
--- NOTE | 2023-01-11 20:37 | CT Report ---
PROCEDURE: ABDOMEN/PELVIS W INDICATIONS: IV only, LLQ pain fever CONTRAST: 100 ml omni 300 TECHNIQUE: After the administration of intravenous contrast, 5 mm thick sections acquired from the diaphragms to the symphysis. 5 mm thick coronal and sagittal reformats were acquired. For radiation dose reducti on, the following was used: automated exposure control, adjustment of mA and/or kV according to duglas ent size. COMPARISON: 12/01/2013 FINDINGS: Image quality: Excellent. Lung bases and heart: Unremarkable. Liver: No solid mass. Gallbladder and biliary tree: Normal gallbladder. No biliary dilatation. Spleen: No splenomegaly. Pancreas: No pancreatic ductal dilation. Adrenals: No adrenal nodule. Kidneys and ureters: Mild left lower pole perinephric inflammation. Very slight hydronephrosis and mi ld urothelial enhancement. There is an indistinct hypodensity in the corticomedullary left lower pole laterally as well as one medially. There are no intrarenal or ureteral calculi. The right kidney and ureter appear normal. Bowel and peritoneum: There is extensive diverticulosis of sigmoid and descending colon without acute inflammation. Surgical changes of gastric sleeve creation. No small bowel obstruction. Lymph nodes: No central or retroperitoneal adenopathy. Vessels: No infrarenal aortic aneurysm. PELVIS Reproductive organs: The uterus is absent. Bladder: Normal urinary bladder without wall thickening or stone. Pelvic lymph nodes: No pelvic adenopathy by size criteria. Bones: Degenerative disc change in the lower lumbar spine. No suspicious bone lesions. Other: No significant ventral or inguinal hernia. IMPRESSION: 1. Findings suspicious of left-sided pyelonephritis. Correlate with UA. No evidence of obstructive ur opathy. 2. Colonic diverticulosis without acute diverticulitis. Reviewed by: Reyna Pizarro MD on 01/11/2023 8:36 PM PDT Approved by: Reyna Pizarro MD on 01/11/2023 8:36 PM PDT Station ID: [id number]
[2023-01-11] MEDS ORDERED: cefTRIAXone 1 GM VIAL IVP STA (20:42)
[2023-01-11] MEDS ORDERED: ONDANSETRON ODT 4 MG Prepack 2 TL STA (21:08)
[2023-01-11] MEDS ORDERED: ONDANSETRON ODT 4 MG TABLET TL STA (21:08)
[2023-01-11] MEDS ORDERED: ACETAMINOPHEN 500 MG TABLET PO STA (21:08)
[2023-01-11 21:16] VITALS: BP 117/65
== END 2023-01-11 21:29 | disposition home or self-care (01) ==
LOC: ED 18:24
DX: N12 Tubulo-interstitial nephritis, not specified as acute or chronic (principal); F17.200 Nicotine dependence, unspecified, uncomplicated
CPT/HCPCS: 36415; 74177; 80053; 81001; 83690; 85025; 87086; 96374; 99284; A9270; Q0162; Q9967; 81003

== ENCOUNTER 2023-04-30 08:50 | Outpatient (CLI) | payer BC ==
--- NOTE | 2023-04-30 17:29 | XRAY Report ---
PROCEDURE: Hand 3 View RT INDICATIONS: PAIN IN HAND TECHNIQUE: 3 views of the hand(s) acquired. COMPARISON: None. FINDINGS: Bones: No fractures or dislocations. No suspicious bony lesions. Soft tissues: No suspicious soft tissue calcifications . IMPRESSION: No acute bony abnormality. If pain persists with conservative management, consider repeat radiographs in 10-14 days or cross-sectional imaging. Reviewed by: Kartik Whitfield MD on 04/30/2023 5:28 PM PDT Approved by: Kartik Whitfield MD on 04/30/2023 5:28 PM PDT Station ID: [id number]
== END 2023-04-30 08:51 | disposition home or self-care (01) ==
LOC: DI 08:50
PROVIDERS: ATTEND Registered Nurse
DX: M79.641 Pain in right hand (principal)